=== PATIENT | male | born 1945 | race Caucasian/White ===

== ENCOUNTER → 2017-04-27 | Outpatient (CLI) | payer MEDICARE, OTHER ==
[~2017-04-27] MED LIST: ACLI400A2 IH; ALBU6.7H INH; ASCO-96 PO; ASPI325T17 PO; CHOL5000 PO; FLUT9.9S NAS; GABA300C10 PO; IPRA12.9 INH; LEVO150T PO; METF500T4 PO; MULT-412 PO; OLME40TA12 PO; OMEP-110 PO; PRAV20TA2 PO; TRAM50TA2 PO; UBID300C PO; [UNRECOGNIZED DRUG - OTHER] NAS
[2017-04-27 10:14] LABS: MEAN CORPUSCULAR HEMOGLOBIN 29.4 pg (27.5-34.5); MEAN CORPUSCULAR HGB CONC 32.9 g/dL (33.2-36.2); MEAN CORPUSCULAR VOLUME 89.2 fL (81-97); MEAN PLATELET VOLUME 11.9 fL (7.4-10.4); PLATELET COUNT 108 x10^3/uL (130-400); RED BLOOD COUNT 5.03 x10^6/uL (4.38-5.82); RED CELL DISTRIBUTION WIDTH 14.8 % (9.4-14.8)
[2017-04-27 10:16] LABS: MICROSCOPIC NOT IND
[2017-04-27 10:25] LABS: ANION GAP 6 mmol/L (5-15); CALCIUM 8.9 mg/dL (8.5-10.1); CHLORIDE 106 mmol/L (98-107); CREATININE 0.88 mg/dL (0.7-1.3)
[2017-04-27 10:28] LABS: CULTURE INDICATED? NO
[2017-04-27 10:38] LABS: MD YES
[2017-04-27 10:40] LABS: EOS#(MANUAL) 0.11 x10^3/uL (0.0-0.4); EOS% (MANUAL) 1 % (1-7); LYMPH#(MANUAL) 7.56 x10^3/uL (1-3.4); LYMPHS% (MANUAL) 72 % (22-44); MONOS#(MANUAL) 0.21 x10^3/uL (0.3-2.7); MONOS% (MANUAL) 2 % (2-9); SEG#(MANUAL) 2.63 x10^3/uL (1.8-6.8); SEGS% (MANUAL) 25 % (42-75)
[2017-04-27 10:42] LABS: <PLATELET ESTIMATE> DECREASED; LARGE PLATELETS 1+; SMUDGE CELLS 1+
[2017-04-27 10:43] LABS: <RBC MORPHOLOGY> NORMAL
== END | disposition home or self-care (01) ==
LOC: STAR 09:04
PROVIDERS: ATTEND Orthopaedic Surgery
DX: Z01.818 Encounter for other preprocedural examination (principal); M17.11 Unilateral primary osteoarthritis, right knee
CPT/HCPCS: 36415; 80048; 81003; 85025; 87081; 93005